=== PATIENT | male | born 1970 | race Hispanic/Latino ===

== ENCOUNTER 2021-12-11 06:54 | Emergency (ER) | payer OTHER ==
[2021-12-11] MEDS ORDERED: FLUORESCEIN SODIUM 1 MG/WRAP ONE (07:15)
[2021-12-11] MEDS ORDERED: TETRACAINE HCL 0.5% 4ML OPTH ONE (07:15)
[2021-12-11] MEDS ORDERED: TOBRAMYCIN SULF 0.3% OPTH OINT ONE (07:38)
--- NOTE | 2021-12-11 07:57 | EDPHYS ---
Physician Documentation [facility] Name: Hong Mendoza Age: 51 yrs Sex: Male : 1970 Arrival Date: 12/11/2021 Time: 06:55 Bed 5 Private MD: ED Physician Clark Avitia HPI: 12/11 07:48 This 51 yrs old Male presents to ER via Ambulatory with complaints of Foreign narciso Body In Eye. 07:48 The patient is experiencing The patient sustained. Onset: The symptoms/episode narciso began/occurred last night. Duration: the symptoms are continuous. Aggravated by nothing. Alleviated by nothing, covering eye. Associated signs and symptoms: Pertinent positives: None. Patient wears glasses. Severity of symptoms: At their worst the symptoms were mild in the emergency department the symptoms are unchanged. The patient has not experienced similar symptoms in the past. Historical: - Allergies: 07:04 No Known Allergies; iw - Home Meds: 07:04 None [Active]; iw - PMHx: 07:04 None; iw - PSHx: 07:04 left index finger; iw - Immunization history:: Last tetanus immunization: unknown. - Social history:: Smoking status: . - Family history:: not pertinent. ROS: 07:48 Constitutional: Negative for fever, chills, and weight loss, ENT: Negative for injury, narciso pain, and discharge, Neck: Negative for injury, pain, and swelling, Cardiovascular: Negative for chest pain, palpitations, and edema, Respiratory: Negative for shortness of breath, cough, wheezing, and pleuritic chest pain, Abdomen/GI: Negative for abdominal pain, nausea, vomiting, diarrhea, and constipation, Back: Negative for injury and pain, : Negative for injury, bleeding, discharge, and swelling, MS/Extremity: Negative for injury and deformity, Skin: Negative for injury, rash, and discoloration, Neuro: Negative for headache, weakness, numbness, tingling, and seizure, Psych: Negative for depression, anxiety, suicide ideation, homicidal ideation, and hallucinations, Allergy/Immunology: Negative for hives, rash, and allergies, Endocrine: Negative for neck swelling, polydipsia, polyuria, polyphagia, and marked weight changes, Hematologic/Lymphatic: Negative for swollen nodes, abnormal bleeding, and unusual bruising. 07:48 Eyes: Positive for pain, photophobia. Exam: 07:48 Visual Acuity: I have reviewed the nursing documentation. [facility] 07:48 Constitutional: This is a well developed, well nourished patient who is awake, alert, and in no acute distress. Head/Face: Normocephalic, atraumatic. ENT: Nares patent. No nasal discharge, no septal abnormalities noted. Tympanic membranes are normal and external auditory canals are clear. Oropharynx with no redness, swelling, or masses, exudates, or evidence of obstruction, uvula midline. Mucous membranes moist. Neck: Trachea midline, no thyromegaly or masses palpated, and no cervical lymphadenopathy. Supple, full range of motion without nuchal rigidity, or vertebral point tenderness. No Meningismus. Chest/axilla: Normal chest wall appearance and motion. Nontender with no deformity. No lesions are appreciated. Cardiovascular: Regular rate and rhythm with a normal S1 and S2. No gallops, murmurs, or rubs. Normal PMI, no JVD. No pulse deficits. Respiratory: Lungs have equal breath sounds bilaterally, clear to auscultation and percussion. No rales, rhonchi or wheezes noted. No increased work of breathing, no retractions or nasal flaring. Abdomen/GI: Soft, non-tender, with normal bowel sounds. No distension or tympany. No guarding or rebound. No evidence of tenderness throughout. Back: No spinal tenderness. No costovertebral tenderness. Full range of motion. Skin: Warm, dry with normal turgor. Normal color with no rashes, no lesions, and no evidence of cellulitis. MS/ Extremity: Pulses equal, no cyanosis. Neurovascular intact. Full, normal range of motion. Neuro: Awake and alert, GCS 15, oriented to person, place, time, and situation. Cranial nerves II-XII grossly intact. Motor strength 5/5 in all extremities. Sensory grossly intact. Cerebellar exam normal. Normal gait. Psych: Awake, alert, with orientation to person, place and time. Behavior, mood, and affect are within normal limits. 07:48 Eyes: Periorbital structures: appear normal, no acute changes, no abrasion, no cellulitis, no contusion, no ecchymosis, no erythema, no laceration, no swelling, Pupils: no acute changes, normal size, equal, round, and reactive to light and accomodation, Extraocular movements: intact throughout, Conjunctiva: injected, in the right eye, Corneas: foreign body, on the right, at 9 o'clock, a fluorescein strip employed to appreciate the findings, Sclera: no acute changes, Anterior chamber: normal, no acute changes, Lids and lashes: appear normal, no acute changes, Nystagmus: is not appreciated. Vital Signs: 07:03 BP 137 / 92; Pulse 70; Resp 16; Temp 97.9; Pulse Ox 98% on R/A; Weight 81.65 kg; Height bp 5 ft. 5 in. (165.10 cm); 07:03 Body Mass Index 29.95 (81.65 kg, 165.10 cm) bp Procedures: 07:57 Foreign Body Removal: a metal shaving, from the right eye, by using a cotton-tipped [facility] swab, needle, normal saline irrigation, The patient tolerated the removal well. MDM: 07:11 Patient medically screened. [facility] 07:54 Differential diagnosis: Corneal abrasion of Foreign body in right eye. Data reviewed: [facility] vital signs, nurses notes. Data interpreted: cycle consultant: not applicable for this patient encounter. rate is 70 beats/min, rhythm is regular, Pulse oximetry: on room air is 98 %. Counseling: I had a detailed discussion with the patient and/or guardian regarding: the historical points, exam findings, and any diagnostic results supporting the discharge/admit diagnosis. 07:58 Physician consultation: Arcenio Soto MD and will see patient in office, shortly. [facility] 12/11 07:48 Order name: Eye Tray; Complete Time: 07:49 [facility] 12/11 07:48 Order name: Fluoresene Opth strip; Complete Time: 07:49 [facility] 12/11 07:48 Order name: Visual Acuity; Complete Time: 07:49 [facility] Administered Medications: 07:30 Drug: ToBREx (tobramycin) Drops (0.3 %) 2 drops Route: Ophthalmic; Site: right eye; bp 07:45 Drug: Tetracaine Drops 0.5 % 1 drops Route: Ophthalmic; Site: right eye; bp 08:00 Drug: Tetanus Toxoid,Adsorbed 0.5 ml {[employer]: [employer]. Exp: 09/08/2023. Lot bp #: [id number]. } Route: IM; Site: left deltoid; 08:15 Follow up: Response: No adverse reaction bp Disposition Summary: 12/11/21 07:56 Discharge Ordered Location: Home [facility] Problem: new narciso Symptoms: have improved narciso Condition: Stable narciso Diagnosis - Foreign body in cornea, right eye narciso Followup: narciso - With: Private Physician - When: 2 - 3 days - Reason: Recheck today's complaints, Re-evaluation by your physician Followup: narciso - With: Arcenio Soto MD - When: Upon discharge from the Emergency Department - Reason: Recheck today's complaints, Re-evaluation by your physician Discharge Instructions: - Discharge Summary Sheet narciso - Eye Foreign Body narciso - Eye Foreign Body, [id number] [facility] Forms: - Medication Reconciliation Form narciso - Thank You Letter narciso - Antibiotic Education narciso - Prescription Opioid Use [facility] Prescriptions: - Tylenol-Codeine #3 300 mg-30 mg Oral - take 2 tablet by ORAL route every 6 hours; 20 tablet; Refills: 0, Product [facility] Selection Permitted - Tobrex 0.3 % Ophthalmic ointment - apply 1 inch by OPHTHALMIC route 3 times per day; 3.5 gram; Refills: 0, Product [facility] Selection Permitted Signatures: Clark Avitia MD MD cha Williams, Irene, RN RN Felipe Shay RN RN bp
--- NOTE | 2021-12-11 07:57 | ER ---
Nurse's Notes [facility] Name: Hong Mnedoza Age: 51 yrs Sex: Male : 1970 Arrival Date: 12/11/2021 Time: 06:55 Bed 5 Private MD: Diagnosis: Foreign body in cornea, right eye Presentation: 12/11 07:03 Chief complaint: Patient states: feels like there's something in my right eye since iw last night, I was grinding some metal earlier in the day. Coronavirus screen: At this time, the client does not indicate any symptoms associated with coronavirus-19. Ebola Screen: Patient negative for fever greater than or equal to 101.5 degrees Fahrenheit, and additional compatible Ebola Virus Disease symptoms Patient denies exposure to infectious person. Patient denies travel to an Ebola-affected area in the 21 days before illness onset. No symptoms or risks identified at this time. Initial Sepsis Screen: Does the patient meet any 2 criteria? No. Patient's initial sepsis screen is negative. Does the patient have a suspected source of infection? No. Patient's initial sepsis screen is negative. Risk Assessment: Do you want to hurt yourself or someone else? Patient reports no desire to harm self or others. Onset of symptoms was December 10, 2021. 07:03 Method Of Arrival: Ambulatory iw 07:03 Acuity: CARI 4 iw Triage Assessment: 07:05 General: Appears distressed, uncomfortable, Behavior is calm, cooperative, appropriate bp for age. Pain: Complains of pain in right eye. EENT: Eyes with foreign body noted in outer aspect of conjuctiva of right eye. Neuro: No deficits noted. Cardiovascular: No deficits noted. Respiratory: No deficits noted. GI: No signs and/or symptoms were reported involving the gastrointestinal system. : No signs and/or symptoms were reported regarding the genitourinary system. Derm: No deficits noted. Musculoskeletal: No deficits noted. Historical: - Allergies: 07:04 No Known Allergies; iw - Home Meds: 07:04 None [Active]; iw - PMHx: 07:04 None; iw - PSHx: 07:04 left index finger; iw - Immunization history:: Last tetanus immunization: unknown. - Social history:: Smoking status: . - Family history:: not pertinent. Screenin:05 Abuse screen: Denies threats or abuse. Denies injuries from another. Nutritional bp screening: No deficits noted. Tuberculosis screening: No symptoms or risk factors identified. Fall Risk None identified. Assessment: 07:05 General: SEE TRIAGE NOTE. bp 08:20 Reassessment: PT D/C HOME AMBULATORY. bp Vital Signs: 07:03 BP 137 / 92; Pulse 70; Resp 16; Temp 97.9; Pulse Ox 98% on R/A; Weight 81.65 kg; Height bp 5 ft. 5 in. (165.10 cm); 07:03 Body Mass Index 29.95 (81.65 kg, 165.10 cm) bp ED Course: 06:55 Patient arrived in ED. ja2 07:04 Triage completed. iw 07:05 Arm band placed on. iw 07:05 Patient has correct armband on for positive identification. Bed in low position. Call bp light in reach. Side rails up X2. 07:11 Clark Avitia MD is Attending Physician. narciso 07:27 Felipe Shay, JUSTINA is Primary Nurse. bp 07:30 Assist provider with foreign body removal of METAL FRAG from right conjunctiva using a bp slit lamp Set up for procedure. Performed by Clark Avitia MD Patient tolerated well. 07:55 Arcenio Soto MD is Referral Physician. narciso 08:20 Patient did not have IV access during this emergency room visit. bp Administered Medications: 07:30 Drug: ToBREx (tobramycin) Drops (0.3 %) 2 drops Route: Ophthalmic; Site: right eye; bp 07:45 Drug: Tetracaine Drops 0.5 % 1 drops Route: Ophthalmic; Site: right eye; bp 08:00 Drug: Tetanus Toxoid,Adsorbed 0.5 ml {[employer]: [employer]. Exp: 09/08/2023. Lot bp #: [id number]. } Route: IM; Site: left deltoid; 08:15 Follow up: Response: No adverse reaction bp Medication: 07:05 VIS not applicable for this client. bp Outcome: 07:56 Discharge ordered by . narciso 08:20 Discharged to home ambulatory. bp 08:20 Condition: stable 08:20 Discharge instructions given to patient, Instructed on discharge instructions, follow up and referral plans. medication usage, Demonstrated understanding of instructions, follow-up care, medications, Prescriptions given X 2. 08:21 Patient left the ED. bp Signatures: Clark Avitia MD MD cha Williams, Irene, RN RN iw Felipe Shay RN RN Carmela Biswas Corrections: (The following items were deleted from the chart) 07:49 07:03 BP 137 / 92; Pulse 70bpm; Resp 16bpm; Pulse Ox 98% RA; 81.65 kg; Height 5 ft. 5 bp in.; BMI: 29.9; iw
[2021-12-11] MEDS ORDERED: TETANUS & DIPHTHERIA TOX,ADULT 0.5 ML VIAL ONE (08:20)
[2021-12-11 08:27] VITALS: BP 137/92; TEMP 97.9; O2SAT 98
== END 2021-12-11 08:21 | disposition home or self-care (01) ==
LOC: ER 06:54
PROC: 08C8XZZ Extirpation of Matter from Right Cornea, External Approach (ICD-10-PCS; principal; 2021-12-11)
DX: T15.01XA Foreign body in cornea, right eye, initial encounter (principal); Z23 Encounter for immunization
CPT/HCPCS: 90714